=== PATIENT | female | born 1960 | race Caucasian/White ===

== ENCOUNTER 2017-07-06 18:35 | Inpatient (IN) | payer OTHER ==
[~2017-07-06] VITALS: Ht 170.2 cm; Wt 96.2 kg
[2017-07-06 19:57] LABS: BASOPHIL % 0.1 % (0-2); PLATELET COUNT 398 x10^3mcL (130-400)
[2017-07-06 20:04] LABS: CALCIUM 9.9 mg/dL (8.5-10.1); CARBON DIOXIDE 24.4 mmol/L (21-32); CREATININE SERUM 2.2 mg/dL (0.6-1.0)
[2017-07-06 20:09] LABS: ALBUMIN 4.7 g/dL (3.4-5.0); BILIRUBIN TOTAL 0.8 mg/dL (0.20-1.00); TOTAL PROTEIN, SERUM 8.8 g/dL (6.4-8.2)
[2017-07-06] MEDS ORDERED: MIRAPEX0.25 MG PO (22:42)
[2017-07-06] MEDS ORDERED: BENAZEPRIL HYDR40 M1 PO (22:42)
[2017-07-06] MEDS ORDERED: SIMVASTATIN40 M1 PO (22:43)
[2017-07-06] MEDS ORDERED: POTASSIUM CHLO10 MEQ PO (22:43)
[2017-07-06] MEDS ORDERED: FUROSEMIDE20 MG PO (22:43)
[2017-07-06] MEDS ORDERED: METOPROLOL TART25 M1 PO (22:43)
[2017-07-06] MEDS ORDERED: D3-50001 TAB PO (22:44)
[2017-07-06] MEDS ORDERED: TRICOR48 M1 PO (22:44)
[2017-07-06] MEDS ORDERED: BUPROPION HCL150 M3 PO (22:45)
[2017-07-06] MEDS ORDERED: QVAR0.08 MG/Ac IH (22:46)
[2017-07-06] MEDS ORDERED: SEREVENT D0.046 MG/1 IH (22:46)
[2017-07-06 22:47] LABS: MAGNESIUM 2.1 mg/dL (1.8-2.4); PHOSPHOROUS 4.6 mg/dL (2.5-4.9)
[2017-07-06] MEDS ORDERED: COUMADIN3 MG PO (22:47)
[2017-07-06 22:50] LABS: CHOLESTEROL/HDL RATIO 5.1
[2017-07-06 22:51] LABS: FREE T4 0.96 ng/dL (0.76-1.46); FREE THYROXINE INDEX 2.9 ug/dL (1.4-4.5); T4(THYROXINE) 9.3 ug/dL (4.7-13.3)
[2017-07-06 22:52] LABS: T3 TOTAL 1.12 ng/mL
[2017-07-06 23:49] VITALS: BP 116/65
[2017-07-06 23:55] VITALS: BP 116/85
[2017-07-07] VITALS (7 sets, daily range): BP systolic 101–143; BP diastolic 57–82
[2017-07-07 04:18] LABS: UA SPECIFIC GRAVITY >=1.030 (1.005-1.035); microscopic required? YES; urine erythrocyte NEGATIVE (NEGATIVE)
[2017-07-07 04:23] LABS: AMPHETAMINE QUAL UR NONE DETECTED (NEG <=1000)
[2017-07-07 07:00] LABS: CALCIUM 7.7 mg/dL (8.5-10.1); CREATININE SERUM 1.7 mg/dL (0.6-1.0); POTASSIUM SERUM 4.1 mmol/L (3.5-5.1)
[2017-07-07 07:04] LABS: BASOPHIL % 0.2 % (0-2); PLATELET COUNT 261 x10^3mcL (130-400); RED CELL DISTRIBUTION WIDTH 13.2 % (11.5-14.5)
[2017-07-08 05:08] VITALS: BP 138/79
[2017-07-08 07:04] LABS: CALCIUM 8.8 mg/dL (8.5-10.1); CARBON DIOXIDE 25.4 mmol/L (21-32); CREATININE SERUM 1.1 mg/dL (0.6-1.0); POTASSIUM SERUM 4.1 mmol/L (3.5-5.1)
[2017-07-08 07:09] LABS: BASOPHIL % 0.3 % (0-2); PLATELET COUNT 267 x10^3mcL (130-400); RED CELL DISTRIBUTION WIDTH 12.9 % (11.5-14.5)
[2017-07-08 09:42] VITALS: BP 128/78
[2017-07-08 21:39] VITALS: BP 143/91
[2017-07-09 05:56] LABS: BASOPHIL % 0.1 % (0-2); PLATELET COUNT 272 x10^3mcL (130-400); RED CELL DISTRIBUTION WIDTH 12.9 % (11.5-14.5)
[2017-07-09 06:20] LABS: CARBON DIOXIDE 22.6 mmol/L (21-32); CHLORIDE SERUM 108 mmol/L (98-107); GFR1 > 60 mL/min; GLUCOSE SERUM 99 mg/dL (74-106); POTASSIUM SERUM 3.6 mmol/L (3.5-5.1); SODIUM SERUM 139 mmol/L (136-145)
[2017-07-09 06:51] VITALS: BP 134/71
[2017-07-09 09:35] VITALS: BP 130/74
[2017-07-09] MEDS ORDERED: COUMADIN5 MG PO (13:29)
[2017-07-09] MEDS ORDERED: IMO2 PO (13:30)
[2017-07-09 14:31] VITALS: BP 130/74
== END 2017-07-09 15:21 | disposition home or self-care (01) | DRG 720 ==
LOC: ED 18:35 → DU 22:02 → MU 07-08 10:04
PROVIDERS: Emergency Medicine; ADMIT Family Medicine
DX: A41.89 Other specified sepsis (principal); N17.0 Acute kidney failure with tubular necrosis; R65.20 Severe sepsis without septic shock; K76.0 Fatty (change of) liver, not elsewhere classified; A08.4 Viral intestinal infection, unspecified; E86.0 Dehydration; F32.9 Major depressive disorder, single episode, unspecified; J44.9 Chronic obstructive pulmonary disease, unspecified; E78.5 Hyperlipidemia, unspecified; E78.1 Pure hyperglyceridemia; N28.1 Cyst of kidney, acquired; I25.10 Atherosclerotic heart disease of native coronary artery without angina pectoris; E66.9 Obesity, unspecified; Z68.33 Body mass index [BMI] 33.0-33.9, adult; Z95.1 Presence of aortocoronary bypass graft; Z79.01 Long term (current) use of anticoagulants; Z95.4 Presence of other heart-valve replacement
CPT/HCPCS: 83880; 84439; 87046; 87046-59; 94150; J1956; J2405; J3010; J7030; J7620

== ENCOUNTER 2018-08-08 12:41 | Emergency (ER) | payer OTHER ==
[~2018-08-08] VITALS: Ht 170.2 cm; Wt 87.1 kg
[~2018-08-08 12:41] MED LIST: BENAZEPRIL HYDR40 M1 PO; BUPROPION HCL150 M3 PO; COUMADIN3 MG PO; COUMADIN5 MG PO; D3-50001 TAB PO; FUROSEMIDE20 MG PO; IMO2 PO; METOPROLOL TART25 M1 PO; MIRAPEX0.25 MG PO; POTASSIUM CHLO10 MEQ PO; QVAR0.08 MG/Ac IH; SEREVENT D0.046 MG/1 IH; SIMVASTATIN40 M1 PO; TRICOR48 M1 PO
[2018-08-08 12:46] VITALS: Ht 170.2 cm; Wt 87.1 kg
[2018-08-08 13:21] LABS: PLATELET COUNT 382 x10^3mcL (130-400); RED CELL DISTRIBUTION WIDTH 12.4 % (11.5-14.5)
[2018-08-08 13:30] LABS: CALCIUM 9.3 mg/dL (8.5-10.1); CARBON DIOXIDE 26.3 mmol/L (21-32); CREATININE SERUM 1.9 mg/dL (0.6-1.0); POTASSIUM SERUM 4.6 mmol/L (3.5-5.1)
[2018-08-08 13:39] LABS: ALBUMIN 4.4 g/dL (3.4-5.0); BILIRUBIN TOTAL 0.31 mg/dL (0.20-1.00); TOTAL PROTEIN, SERUM 8.2 g/dL (6.4-8.2)
[2018-08-08 15:38] LABS: microscopic required? NO
[2018-08-08 15:45] LABS: UA SPECIFIC GRAVITY >=1.030 (1.005-1.035); urine erythrocyte NEGATIVE (NEGATIVE)
[2018-08-08 21:45] VITALS: BP 104/67
== END 2018-08-08 21:58 | disposition home or self-care (01) ==
LOC: ED 12:41
PROVIDERS: Emergency Medicine
DX: I12.9 Hypertensive chronic kidney disease with stage 1 through stage 4 chronic kidney disease, or unspecified chronic kidney disease (principal); N18.9 Chronic kidney disease, unspecified; E78.00 Pure hypercholesterolemia, unspecified; Z95.2 Presence of prosthetic heart valve; Z79.01 Long term (current) use of anticoagulants
CPT/HCPCS: 83880; J1885; J2405; J2543; Q0092